=== PATIENT | female | born 1970 | race African-American/Black ===

== ENCOUNTER → 2024-03-01 | Day surgery (SDC) | payer BC ==
[~2024-03-01] MED LIST: DOXEPIN HCL25 MG PO; HYOSCYAMINE SULFATE 0.5 MG/ML INJ ONE; LINZESS72 MCG PO; LOSARTAN POTASS25 MG PO; OZEMPIC0.25 MG/02 SC; PROPOFOL IV EMULSION 10 MG/ML 20 ML VIAL ONE; XANAX1 MG PO
[2024-03-01] MEDS: LACTATED RINGER'S 1,000 ML ONE (09:20)
[2024-03-01] MEDS: METHYLPREDNISOLONE SOD SUCC 125 MG/2ML VIAL IV ONE (11:25)
[2024-03-01 12:45] VITALS: BP 123/70; PULSE 87; RESP 16; TEMP 97.5; O2SAT 98
== END | disposition home or self-care (01) ==
LOC: OR 08:29
PROVIDERS: ATTEND Internal Medicine Gastroenterology
DX: K51.90 Ulcerative colitis, unspecified, without complications (principal); K62.89 Other specified diseases of anus and rectum; K64.8 Other hemorrhoids; K21.9 Gastro-esophageal reflux disease without esophagitis; D64.9 Anemia, unspecified; R06.02 Shortness of breath; I10 Essential (primary) hypertension; E03.9 Hypothyroidism, unspecified; G40.909 Epilepsy, unspecified, not intractable, without status epilepticus; Z01.810 Encounter for preprocedural cardiovascular examination; Z79.899 Other long term (current) drug therapy
CPT/HCPCS: 45380; 83630; 83993; 86140; 87045; 87177; 87324; 87328; 87449; 93005; J1980; J2704; J2919; J7121; 45378